=== PATIENT | female | born 1965 | race Caucasian/White ===

== ENCOUNTER 2018-06-28 18:20 | Emergency (ER) | payer MEDICAID ==
[2018-06-28 18:23] VITALS: BP 127/71
[2018-06-28] MEDS: methylPREDNISolone Sodium Succinate 125 MG/2 ML SDV IM ONE (18:34)
[2018-06-28] MEDS: hydrOXYzine HCl 25 MG Tab PO ONE (19:07)
--- NOTE | 2018-06-28 19:07 | EDM.PDOC ---
ED HPI GENERAL MEDICAL PROBLEM - General Chief Complaint: Bite:Animal, Insect Stated Complaint: Bee stings Time Seen by Provider: 06/28/18 18:26 Source of Information: Reports: Patient History Limitations: Reports: No Limitations - History of Present Illness INITIAL COMMENTS - FREE TEXT/NARRATIVE: Patient stung by 15-20 bees one week ago while filling water jugs when she stepped on ground bee nest. Had increased itching/sensitivity from stings that was relieved by steroid shot at clinic. Noticed that the itching is returning in sting areas. No shortness of breath/ respiratory changes/throat swelling. No signs of infection in areas of stings. Also has a chronic on/off rash that results in scattered pruritic papules/ vesicles that have been thought could be due to some atypical form of shingles. These have responded too to steroid treatment in past. Patient says this issue has been worse too since bee incident. No other changes reported. Face Pain Score (Numeric/FACES): 2 - Related Data Allergies Allergy/AdvReac Type Severity Reaction Status Date / Time vancomycin Allergy Redness Verified 11/16/15 17:34 Home Meds: Home Meds Hydrocodone/Acetaminophen [Hydrocodon-Acetaminophen 5-325] 1 each PO ASDIRECTED PRN 11/16/15 [History] Levothyroxine Sodium [Synthroid] 150 mcg PO DAILY 11/16/15 [History] buPROPion HCl [Wellbutrin SR] 150 mg PO DAILY 11/16/15 [History] Past Medical History Musculoskeletal History: Reports: Fracture Dermatologic History: Reports: Other (See Below) (unidentified intermittent papular/vesicular erruption) - Past Surgical History HEENT Surgical History: Reports: Radial Keratotomy Social & Family History - Tobacco Use Smoking Status *Q: Never Smoker Second Hand Smoke Exposure: No - Caffeine Use Caffeine Use: Reports: Coffee - Recreational Drug Use Recreational Drug Use: No ED ROS GENERAL - Review of Systems Review Of Systems: ROS reveals no pertinent complaints other than HPI. ED EXAM, ANIMAL BITE - Physical Exam Exam: See Below Exam Limited By: No Limitations General Appearance: Alert, WD/WN, No Apparent Distress Eye Exam: Bilateral Eye: EOMI, PERRL Ears: Normal External Exam, Normal Canal Nose: Normal Inspection Throat/Mouth: Normal Inspection, Normal Lips, Normal Teeth, Normal Oropharynx, Normal Voice, No Airway Compromise Head: Atraumatic, Normocephalic Neck: Normal Inspection, Supple, Non-Tender, Full Range of Motion Respiratory/Chest: No Respiratory Distress, Lungs Clear, Normal Breath Sounds, No Accessory Muscle Use, Chest Non-Tender Cardiovascular: Regular Rate, Rhythm, No Murmur GI/Abdominal: Soft, Non-Tender (Female) Exam: Deferred Rectal (Female) Exam: Deferred Extremities: Normal Inspection Neurological: Alert, Normal Cognition, Normal Gait, No Motor/Sensory Deficits Psychiatric: Normal Affect, Normal Mood Skin Exam: Other (scattered papules, some excoriated, shoulders/arms/back of neck. No wheal/flare pattern noted. No redness/crusting/drainage. ) Course - Vital Signs Last Recorded V/S: Last Vital Signs Temp 36.9 C 06/28/18 18:22 Pulse 86 06/28/18 18:22 Resp 18 06/28/18 18:22 BP 127/71 06/28/18 18:22 Pulse Ox 100 06/28/18 18:22 - Orders/Labs/Meds Meds: Medications Discontinued Medications Generic Name Dose Route Start Last Admin Trade Name Yeni PRN Reason Stop Dose Admin Hydroxyzine HCl 25 mg 06/28/18 19:00 06/28/18 19:07 Atarax PO 06/28/18 19:01 25 mg ONETIME ONE Administration Methylprednisolone Sodium Succinate 125 mg 06/28/18 18:26 06/28/18 18:34 Solu-Medrol IM 06/28/18 18:27 125 mg ONETIME ONE Administration - Re-Assessments/Exams Free Text/Narrative Re-Assessment/Exam: 06/28/18 19:25 Suspect persistent reaction to bee stings. Possible Id reaction also. Plan at this time is to give additional Solumedrol and place patient on prednisone taper. Will have patient take 20mg for several days followed by 10mg for 5 days, then 5mg daily for 5 days. Recommend that she follow up with a flux core welder regarding the intermittent skin rash she has had that has been attributed to shingles. Given its pattern/ non-dermatome distribution it does not sound like shingles behavior. A biopsy of an active lesion could be diagnostically helpful. Precautions reviewed prior to discharge. To follow up as needed if problems worsen or do not improve. Departure - Departure Time of Disposition: 19:03 Disposition: Home, Self-Care 01 Condition: Good Clinical Impression: Insect bites and stings Qualifiers: Encounter type: subsequent encounter Qualified Code(s): W57.XXXD - Bitten or stung by nonvenomous insect and other nonvenomous arthropods, subsequent encounter - Discharge Information *PRESCRIPTION DRUG MONITORING PROGRAM REVIEWED*: Not Applicable *COPY OF PRESCRIPTION DRUG MONITORING REPORT IN PATIENT CRUZ: Not Applicable Instructions: Methylprednisolone Solution for Injection, Hydroxyzine capsules or tablets Referrals: Oriana Lamas SET DECORATOR [Primary Care Provider] - Forms: ED Department Discharge Additional Instructions: Take Prednisone taper as directed. Watch for changes. OK to take Benadryl 25-50mg every 6 hours as needed for itching. Follow up as needed if you have any problems.
== END 2018-06-28 19:20 | disposition home or self-care (01) ==
LOC: LL.ED 18:20
DX: T63.441D Toxic effect of venom of bees, accidental (unintentional), subsequent encounter (principal); Z88.1 Allergy status to other antibiotic agents; Z79.899 Other long term (current) drug therapy
CPT/HCPCS: 96372; 99283; A9270-GY; J2930

== ENCOUNTER 2018-11-13 10:58 | Day surgery (SDC) | payer MEDICAID ==
[~2018-11-13 10:58] MED LIST: Lactated Ringers 1,000 ML IV SCH; Propofol 200 MG/20 ML SDV ONE; Sodium Chloride 0.9% 10 ML Syringe FLUSH PRN
[2018-11-13] MEDS ORDERED: Midazolam 1 MG/ML 2 ML SDV ONE (11:57)
[2018-11-13] MEDS ORDERED: fentaNYL 100 MCG/2 ML SDV ONE (11:57)
--- NOTE | 2018-11-13 12:13 | PCM.OPNOTE ---
- General Post-Op/Procedure Note Date of Surgery/Procedure: 11/13/18 Operative Procedure(s): EGD Findings: Normal Pre Op Diagnosis: Dysphasia Post-Op Diagnosis: Same Anesthesia Technique: MORGAN Primary Surgeon: Ramana Graff Anesthesia Provider: Kady Swain Complications: None Condition: Good
[2018-11-13] MEDS ORDERED: Lidocaine 2% 5 ML SDV ONE (12:15)
--- NOTE | 2018-11-13 13:29 | OR ---
Date of Procedure: 11/13/2018 PREOPERATIVE DIAGNOSIS: Dysphagia with nausea. POSTOPERATIVE DIAGNOSIS: Normal EGD. PROCEDURE: EGD. ANESTHESIA: IV sedation. DESCRIPTION OF PROCEDURE: The patient was brought to the procedure room, where she was placed on her left side and IV sedation administered. Oral bite block was placed and the upper endoscope was advanced into the esophagus under direct vision without difficulty. Vocal cords were viewed and were normal. Scope was advanced to the third portion of the duodenum. Duodenum and pylorus were normal. The antrum and body of the stomach were normal. Retroflexion revealed a normal-appearing fundus. There was no hiatal hernia present. Squamocolumnar junction appeared normal. There were no reflux esophagitis, strictures, or other abnormalities present. Air was removed from the stomach and the scope withdrawn through the esophagus, which all appeared normal. The patient tolerated the procedure well and returned to recovery in stable condition. NEHEMIAS HUMMEL MD /[id number]
[2018-11-13 15:12] VITALS: BP 96/62
== END 2018-11-13 13:40 | disposition home or self-care (01) ==
LOC: LL.SDS 10:58
PROVIDERS: ATTEND Surgery
DX: R13.10 Dysphagia, unspecified (principal); R11.0 Nausea
CPT/HCPCS: J2250; J2704; J3010; J7120

== ENCOUNTER 2022-04-27 07:57 | Emergency (ER) | payer MEDICAID ==
[2022-04-27 08:02] VITALS: BP 94/67; PULSE 90
[2022-04-27] MEDS ORDERED: Sodium Chloride 0.9% 1,000 ML IV ONE ×2 (08:09→09:22)
[2022-04-27] MEDS ORDERED: Sodium Chloride 0.9% 10 ML Syringe FLUSH PRN (08:09)
[2022-04-27] MEDS ORDERED: Ondansetron 4 MG Tab.DIS PO ONE (08:37)
[2022-04-27 08:49] LABS: ANION GAP 7.4 meq/L (7-15)
== END 2022-04-27 10:36 | disposition home or self-care (01) ==
LOC: LL.ED 07:57
DX: T67.5XXA Heat exhaustion, unspecified, initial encounter (principal); R11.2 Nausea with vomiting, unspecified; F41.9 Anxiety disorder, unspecified; F32.A Depression, unspecified; Z88.1 Allergy status to other antibiotic agents
CPT/HCPCS: 36415; 80053; 84443; 85025; 96360; 96361; 99284; 99284-25; A9270-GY; J7030

== ENCOUNTER 2023-01-03 07:38 | Day surgery (SDC) | payer MEDICAID ==
[2023-01-03] MEDS ORDERED: Lactated Ringers 1,000 ML IV SCH (08:00)
[2023-01-03] MEDS ORDERED: Sodium Chloride 0.9% 10 ML Syringe FLUSH PRN (08:00)
[2023-01-03] MEDS ORDERED: Propofol 200 MG/20 ML SDV ONE (08:24)
[2023-01-03] MEDS ORDERED: Midazolam 1 MG/ML 2 ML SDV ONE (08:24)
[2023-01-03 10:04] VITALS: BP 112/71; PULSE 73
== END 2023-01-03 10:27 | disposition home or self-care (01) ==
LOC: LL.SDS 07:38
PROVIDERS: ATTEND Surgery
DX: Z12.11 Encounter for screening for malignant neoplasm of colon (principal); F41.9 Anxiety disorder, unspecified; F32.A Depression, unspecified; E03.9 Hypothyroidism, unspecified; Z88.1 Allergy status to other antibiotic agents; Z79.890 Hormone replacement therapy
CPT/HCPCS: 00812; J2250; J2704; J7120